=== PATIENT | male | born 1980 | race Caucasian/White ===

== ENCOUNTER 2023-11-22 09:45 | Emergency (ER) | payer OTHER, SELFPAY ==
[2023-11-22 09:52] VITALS: BP 145/111
--- NOTE | 2023-11-22 09:55 | ED TECH ---
pt arrves in triage with [facility] crisis, [facility] referral
--- NOTE | 2023-11-22 10:18 | ED.GENMED ---
History of Present Illness
General
Chief Complaint: Depression
Source: patient and family
Time Seen by Provider: 11/22/23 10:02
Travel History
Have you had any contact with someone who has COVID-19?: No
Do you have any symptoms of coronavirus? Fever > 100 degrees, chills, cough, shortness of breath, sore throat, loss of taste or smell, muscle aches, or headache?: No
History of Present Illness
History of Present Illness:
43-year-old male with past medical history of alcohol abuse and depression presenting to the emergency department with family reporting that despite being in rehab recently patient relapsed and has been drinking approximately 2 fifths of vodka
daily, last night drank 1-1/2 fifths of vodka with last drink being approximately 45 minutes to an hour ago. Due to increased depression and reported suicidal ideation disease (patient has no plan) contacted the crisis center at this facility who
advised patient come to the ER to be evaluated. Patient denies any history of seizing from alcohol withdrawal. Currently denying any nausea/vomiting, hallucinations, anxiousness, tremors or any other concerns. Patient has been to multiple rehab
facilities in the past
Past History
Past History
ED Past Medical History: Psychiatric (Alcohol abuse/depression)
ED Past Surgical History: Orthopedic
Social History
Tobacco: Non-smoker
Alcohol: Chronic alcoholic
Drug: None
Personal:
Living: with family
Review of Systems
Review of Systems
All Other Systems: ROS reviewed and negative except as documented in HPI and ROS
Phy Exam
Physical Exam
Physical Exam:
GENERAL: Alert , in no apparent distress
EYE: Clear conjunctiva
NECK: Supple
ENT: o/p clr, mmm.
LUNGS: no acute respiratory distress
NEUROLOGICAL: Alert and oriented
SKIN: Warm and dry, skin intact.
MUSCULOSKELETAL: No edema, well perfused.
PSYCH: Normal and appropriate interaction. Abrasive affect
Scores
Heart Failure Risk
Heart Failure Risk Score: Not Applicable
Heart Score for Chest Pain Patients
STEMI patient?: Not applicable
Withdrawal Assessment of Alcohol
Withdrawal Assessment Completed?: Yes
Nausea and Vomiting: No nausea and no vomiting
Tactile Disturbances: None
Tremor: No tremor
Auditory Disturbances: Not present
Paroxysmal Sweats: No sweat visible
Visual Disturbances: Not present
Anxiety: No anxiety, at ease
Headache, Fullness in Head: Not present
Agitation: Normal activity
Orientation and clouding of sensorium: Oriented and can do serial additions
Total CIWA Score: 0
Alcohol Withdrawal Medication Recommendation: Equal to MSAS Score 0-4. Monitor & re-assess q2hrs, NO MEDICATION NEEDED
Course
Orders/Labs/Results
Orders:
Orders
11/22/23 10:23
Alcohol Urgent
COVID-19 Antigen Urgent
Source: Nasal Swab
Complete Blood Count/With Diff Urgent
Comprehensive Metabolic Panel Urgent
Drug Screen, Urine [Urine Drug Abuse Screen] Urgent
Date Specimen was Collected: 11/22/23
Time Specimen was Collected: 10:19
Abnormal Lab Results
11/22/23
10:23
MCH 31.3 H pg
(27.0-31.0)
Sodium 149 H mmol/L
(135-145)
Chloride 114 H mmol/L
(98-107)
AST 72 H U/L
(17-59)
Total Protein 8.5 H g/dl
(6.3-8.2)
U Marijuana (THC) Screen Positive H
(Negative)
11/22/23 10:23
11/22/23 10:23
Vital Signs
Initial and Last Documented VS:
Initial Vital Signs
Temp Pulse BP Pulse Ox
98.3 F 114 145/111 98
11/22/23 09:52 11/22/23 09:52 11/22/23 09:52 11/22/23 09:52
Last Documented Vital Signs
Temp Pulse BP Pulse Ox
98.3 F 100 127/79 95
11/22/23 09:52 11/22/23 12:50 11/22/23 12:50 11/22/23 12:50
MDM/Problems Addressed
Differential Diagnosis Includes:
Alcohol abuse without current evidence for withdrawal, suicidal ideation without plan or intent, no concern for DTs presently
MDM/Problems Addressed:
43-year-old male presenting emergency department for evaluation of persistent alcohol abuse despite being in multiple different rehab settings with last being within the last month. Patient presented here in hopes to detox at this facility however
explained to patient that we do not detox patients here. He is currently not in any active withdrawal. I will contact the [facility] team to help facilitate with disposition. In the meantime we will check labs and COVID swab in anticipation of
patient being dispositioned to a rehab facility
*Pulse Oximetry
Patient hypoxic: no
*Critical Care Note
Total Time (30-74mins, 75-104mins- exclusive of procedures): Not Applicable
Patient Management
Escalation/DeEscalation of care consider admission/obs:
Patient to be dispositioned to a alcohol rehab facility in [place]. They will be coming to the emergency department to pick the patient up and take him to their facility. He remains stable and in no acute distress.
ED Attending Note
-
Portions of this chart may have been created with voice recognition software.� Occasional wrong word or��sound alike� substitutions may have occurred due to the inherent limitations of voice recognition software.
Discharge Plan
Departure
Patient Disposition: Acute Rehab Facility
Date of Disposition: 11/22/23
Time of Disposition: 13:58
Patient with high blood pressure during this ER visit?: Yes
Discharge Problem:
Alcohol abuse
Instructions: Alcohol Use Disorder (DC)
Referrals:
Brandon Jama MD [Family Provider] -
Interventions
Interventions:
*Risk Screen - Suicide Last Done: 11/22/23 10:10
*General Assessment Last Done: 11/22/23 10:10
*Neglect/Abuse Screening Last Done: 11/22/23 10:10
*ED COVID-19 Vaccine History Last Done: 11/22/23 09:58
ED-Psychological Assessment Last Done: 11/22/23 10:10
[2023-11-22 10:33] LABS: % Basophils 1.1 % (0-2); % Eosinophils 1.9 % (0-6); % Immature Granulocytes 0.3 % (0-0.5); % Monocytes 7.7 % (1.7-9.3); Absolute Basophils 0.1 10^3/uL (0-0.2); Absolute Eosinophils 0.1 10^3/uL (0-0.7); Absolute Lymphocytes 2.8 10^3/uL (1.2-3.4); Absolute Monocytes 0.6 10^3/uL (0.1-0.6); Absolute Neutrophils 3.8 10^3/uL (1.4-6.5); Hematocrit 47.5 % (39.0-52.0); Hemoglobin 16.7 g/dL (13.0-18.0); Mean Corp Hgb Conc. 35.2 g/dL (33.0-37.0); Mean Corpuscular Hgb 31.3 pg (27.0-31.0); Mean Platelet Volume 9.2 fL (7.4-10.4); Nucleated Red Blood Cells % 0 % (-); Platelet Count 252 10^3/uL (130-400); Red Blood Cell Count 5.34 10^6/uL (4.70-6.10); Red Cell Dist. Width 13.3 % (11.5-14.5); White Blood Cell Count 7.4 10^3/uL (4.8-10.8)
[2023-11-22 10:46] LABS: ALT (SGPT) 45 U/L (0-50); AST (SGOT) 72 U/L (17-59); Albumin 4.9 g/dl (3.5-5.0); Alkaline Phosphatase 96 U/L (38-126); Blood Urea Nitrogen 10 mg/dl (9-20); COVID-19 Antigen Negative (Negative); Carbon Dioxide 25 mmol/L (22-30); Chloride 114 mmol/L (98-107); Glucose 86 mg/dl (70-99); Potassium 4.6 mmol/L (3.5-5.1); Sodium 149 mmol/L (135-145); Total Bilirubin 0.5 mg/dl (0.2-1.3); Total Protein 8.5 g/dl (6.3-8.2); eGFR > 60.00
[2023-11-22 10:57] LABS: Amphetamines Negative (Negative); Barbiturates Negative (Negative); Benzodiazepines Negative (Negative); Buprenorphine Negative (Negative); Cocaine Negative (Negative); Marijuana Positive (Negative); Methadone Negative (Negative); Methamphetamines Negative (Negative); Opiates Negative (Negative); Phencyclidine Negative (Negative); Tricyclic Antidepressants Negative (Negative)
--- NOTE | 2023-11-22 11:09 | EDRN ---
pt started to yell and kick and scream, throwing tantrum about wait time for [facility]. this rn calmly explained to pt that we will call for another update about timing for them to come speak with pt and family. pts mother states 'we were told 30-40
minutes and it has been an hour'. this rn explained that we have provided them with the exact information that we were given. pt states 'I am an alcoholic and nobody is fucking helping me'. Rn explained how we have offered to help pt. security
called and LAZ Wu made aware of situation
--- NOTE | 2023-11-22 11:13 | EDRN ---
spoke with Koko from [facility] who state that he is about 15-20 minutes away as he was tied up.
--- NOTE | 2023-11-22 11:15 | EDRN ---
security outside pt room. pt now laying face down on stretcher crying and kicking legs. pt and family made aware of this RN's conversation with [facility] staff member Koko.
--- NOTE | 2023-11-22 11:21 | EDRN ---
LAZ Wu @ bedside speaking with patient and pts mother who is at bedside with pt and has also expressed frustration about wait time.
[2023-11-22 11:24] LABS: Alcohol 393 mg/dl
--- NOTE | 2023-11-22 11:46 | EDRN ---
Koko velasquez [facility] here and at pts bedside.
--- NOTE | 2023-11-22 12:33 | EDRN ---
per faviola pt accepted to a facility in [place], awaiting call from facility. per mom and sister who are leaving they state the pt is crying and 'freaking out'. [facility] is to warehouse order picker pt in about an hour to an hour and a half.
[2023-11-22 12:50] VITALS: BP 127/79
--- NOTE | 2023-11-22 12:58 | EDRN ---
Real from [facility] detox/rehab facility given report. All questions answered. awaiting transport time
--- NOTE | 2023-11-22 13:44 | EDRN ---
pt attempted to leave d/t being hungry, pt never stated hunger to ED staff. pt offered chicken salad sandwich and states he will stay and eat in his room. pt ambulated independently with steady gait.
--- NOTE | 2023-11-22 14:12 | EDRN ---
PT AMBULATED OUT OF ER WITH STEADY GAIT. PT WITNESSED GETTING INTO [facility] ([employer]).
== END 2023-11-22 14:13 ==
LOC: EMR 09:45
PROVIDERS: Physician Assistant Medical; EMERGENCY PHYSICIAN Emergency Medicine; FAMILY PHYSICIAN Family Medicine
DX: F10.239 Alcohol dependence with withdrawal, unspecified (principal); R45.851 Suicidal ideations; R03.0 Elevated blood-pressure reading, without diagnosis of hypertension; F32.A Depression, unspecified; Z11.52 Encounter for screening for COVID-19
CPT/HCPCS: 99285; 80053; 80306; 82077; 85025; 87811